=== PATIENT | male | born 1945 | race Caucasian/White ===

== ENCOUNTER 2017-12-02 11:15 | Observation (INO) | payer OTHER, SELFPAY ==
--- NOTE | 2017-12-02 | DI.NM.S_ITS ---
PROCEDURE: NM SOFIA PERF SPECT SINGLE STUDY Exercise myocardial perfusion SPECT with gated imaging and ejection fraction RADIOPHARMACEUTICAL: 26.2 mCi Tc-99m sestamibi IV at peak exercise. INDICATIONS: chest pain TECHNIQUE: Radiopharmaceutical was injected at peak stress test. SPECT images were obtained, with perfusion images in short axis, horizontal long axis, and vertical long axis views. Gated images were reviewed using Dopios software. COMPARISON: None. CARDIAC STRESS: A standard Wilmer treadmill exercise tolerance test was performed by the patient under the supervision of an attending staff. The patient exercised for 6 minutes and 39 seconds reaching 7.0 METs; functional aerobic impairment (BROWN) is 0 %. Hemodynamic data: There is normal blood pressure and heart response to exercise. Patient achieved 96% of maximum predicted heart rate. Symptoms: Patient denied anginal chest pain during exercise. EKG: No diagnostic changes of ischemia; no ectopy. FINDINGS: Raw data: There is good labeling of myocardium by radiotracer. No significant motion artifacts. Aaqg-ce-jltln ratio is 0.25 (normal is less than 0.38 for sestamibi tracer, and less than 0.50 for thallium tracer). Left ventricular function: Gated images demonstrate normal left ventricle wall thickening. No segmental wall motion abnormalities. Left ventricle end diastolic volume is 105 mL. Left ventricle stress ejection fraction is 70%; normal values are above 45%. Myocardial perfusion: There is a mild apical lateral defect during stress images that improves with prone imaging suggesting attentuation artifact than true ischemia or infarction. IMPRESSION: Probably normal treadmill stress only nuclear stress test. 1) Probably normal perfusion images. There is a mild apical lateral defect during stress images that improves with prone imaging suggesting attentuation artifact than true ischemia or infarction. 2) Normal left ventricular size, wall motion, and systolic function (post stress EF 70%). 3) No ECG evidence of ischemia. 4) No angina during the study. 5) Average exercise tolerance (7.0 METs, BROWN 0%). Target heart rate met. Appropriate BP response to exercise. 6) No prior nuclear stress test available for comparison. Dictated by: Colby Gonzales MD on 12/03/2017 at 18:46 Approved by: Colby Gonzales MD on 12/03/2017 at 18:51
[2017-12-02 11:18] VITALS: BP 145/95; PULSE 94; RESP 12; TEMP 37; O2SAT 96; BMI 25.0
--- NOTE | 2017-12-02 11:39 | DI.RAD.S_ITS ---
PROCEDURE: XR CHEST 1V INDICATIONS: chest pain TECHNIQUE: One view of the chest was acquired. COMPARISON: None. FINDINGS: Surgical changes and devices: None. Lungs and pleura: No pleural effusions or pneumothorax. Lungs are clear. Mediastinum: Mediastinal contours appear normal. Heart size is normal. Bones and chest wall: No suspicious bony lesions. Overlying soft tissues appear unremarkable. IMPRESSION: No acute cardiopulmonary findings. Dictated by: Petrona Brown M.D. on 12/02/2017 at 11:59 Approved by: Petrona Brown M.D. on 12/02/2017 at 11:59
[2017-12-02 12:06] LABS: Add Manual Diff / Slide Review NO; Basophils Percent Auto 0.7 % (0-2); Eosinophils Percent Auto 0.8 % (2-4); Hematocrit 41.1 % (41-53); Hemoglobin 13.9 g/dL (13.5-17.5); Lymphocytes Percent Auto 29.3 % (25-40); Mean Corpuscular HGB Conc 33.9 % (30-36); Mean Corpuscular Hemoglobin 31.8 PG (26-34); Mean Corpuscular Volume 93.8 fL (80-100); Monocytes Percent Auto 7.6 % (3-14); Neutrophils Absolute Auto 2800 /uL (3000-5900); Neutrophils Percent Auto 61.6 % (50-75); Platelet Count 225 X10^3/uL (150-400); Red Blood Cell Count 4.38 X10^6/uL (4.5-5.9); Red Cell Distribution Width 12.9 % (11.6-14.8); White Blood Cell Count 4.6 X10^3/uL (4.5-11.0)
[2017-12-02 12:21] LABS: Alanine Aminotransferase 34 IU/L (21-72); Albumin 4.6 g/dL (3.5-5.0); Albumin Globulin Ratio 1.7 (1.0-2.8); Alkaline Phosphatase 80 U/L (38-126); Aspartate Aminotransferase 24 IU/L (17-59); BUN Creatinine Ratio 22.5 (6-22); Bilirubin Total 0.8 mg/dL (0.2-1.3); Blood Urea Nitrogen 18 mg/dL (9-20); Calcium 9.7 mg/dL (8.4-10.2); Carbon Dioxide 28 mmol/L (22-32); Chloride 103 mmol/L (98-107); Creatine Kinase 48 U/L (55-170); Estimated Glomerular Filt Rate > 60.0 mL/min (>60); Globulin 2.7 g/dL (1.7-4.1); Glucose 98 mg/dL (80-110); HEMOLYSIS < 15 (0-50); Lipase 120 U/L (23-300); Sodium 142 mmol/L (137-145); Total Protein 7.3 g/dL (6.3-8.2)
[2017-12-02 12:30] VITALS: BP 133/75; PULSE 67; RESP 13; O2SAT 97
[2017-12-02 12:38] LABS: Troponin I < 0.012 ng/mL (0.01-0.034)
--- NOTE | 2017-12-02 12:42 | ED.CHESTPAIN ---
HPI - Chest Pain General Chief Complaint: Chest Pain Stated Complaint: tight chest, Time Seen by Provider: 12/02/17 12:34 Source: patient Mode of arrival: ambulatory Limitations: no limitations History of Present Illness HPI narrative: This is a 72-year-old male who comes in with complaint of chest pressure that started yesterday while he was on the treadmill at the gym. He was about 7 or 8 min into his regular routine when he started having pressure that lasted about 10 min. He stopped sat down and it resolved. Patient states it felt like a pressure in his anterior chest that radiated a little bit to his arms. He denies any shortness of breath. No diaphoresis, no nausea or vomiting no syncope or lightheadedness. He has not had any swelling of lower extremities. Denies any issues with bowel movements or urination. He states he had another episode last night while he was getting ready for bed. That lasted about 10 or 15 min and then resolved on its own. He denies any symptoms since then. He takes an aspirin 81 mg daily. He denies any other history such as hypertension, dyslipidemia or diabetes. He has never had a stress test or heart catheterization. Has a history of prostate cancer had his prostate removed and has a PSA checked yearly. His dad had a CABG around the age of 65. He quit smoking many years ago, quit drinking alcohol about a month ago and denies any illicit substances. Related Data Home Medications Medication Instructions Recorded Confirmed aspirin 81 mg PO QPM #0 02/11/11 12/02/17 flaxseed oil 1 cap PO QPM #0 02/11/11 12/02/17 multivitamin 1 tab PO QPM #0 02/11/11 12/02/17 ascorbic acid (vitamin C) 1 tab PO QPM #0 04/23/11 12/02/17 biotin 1 tab PO QPM #0 02/27/16 12/02/17 acyclovir 400 mg PO BID PRN 12/02/17 12/02/17 Allergies Allergy/AdvReac Type Severity Reaction Status Date / Time No Known Drug Allergies Allergy Verified 12/02/17 12:09 Review of Systems Review of Systems All systems reviewed & are unremarkable except as noted in HPI and below Cardiovascular Reports chest pain, Reports chest pain with activity, Denies diaphoresis, Denies syncope, Denies rapid heart rate, Denies leg edema, Denies lightheadedness, Reports radiating jaw, neck or arm pain, Denies palpitations and Denies dyspnea Respiratory Denies chest congestion, Denies cough and Denies dyspnea Gastrointestinal Gastrointestinal: Denies abdominal pain, Denies change in bowel habits, Denies diarrhea, Denies nausea and Denies vomiting Genitourinary Denies difficulty urinating Musculoskeletal Denies back pain Integumentary/Breasts Denies rash Neurologic Denies syncope Endocrine Denies palpitations [facility] Medical History Prostate cancer (Chronic) Surgical History History of tonsillectomy Status post LASIK surgery Status post colonoscopy Status post radical cystoprostatectomy Family History: Reviewed 12/02/17 by Hayley Moncada MD Social History household members: spouse Smoking Status: Never smoker Exam Narrative Exam Narrative: GENERAL: Alert and oriented x three, tall, well-nourished well-appearing male in no acute distress. HEENT: Head normocephalic, atraumatic, EOMI, pupils reactive, face symmetric, moist mucous membranes NECK: Supple, full range of motion CARDIOVASCULAR: Regular rate and rhythm without murmurs, rubs or gallops. No rashes. No skin changes to the anterior chest. No pain with palpation. RESPIRATORY: Breath sounds equal bilaterally, no wheezes rales or rhonchi. ABDOMEN: Soft, nontender. Normoactive bowel sounds all 4 quadrants. No guarding or rebound, rigidity, no mass EXTREMITIES: Normal range of motion, no clubbing or edema. Neurovascularly intact NEUROLOGICAL: Cranial nerves II through XII grossly intact. Moving all extremities SKIN: Warm, dry, no petechiae, no rashes or lesions. Initial Vital Signs Initial Vital Signs: Vital Signs Temperature 98.6 F 12/02/17 11:18 Pulse Rate 94 H 12/02/17 11:18 Respiratory Rate 12 12/02/17 11:18 Blood Pressure 145/95 H 12/02/17 11:18 Pulse Oximetry 96 12/02/17 11:18 Scores HEART Score Heart Score history: Moderately Suspicious Heart Score EKG: Non-Specific repolarization disturbance Heart Score Age: > or = 65 years old Heart Score risk factors: No known risk factors Heart Score troponin: < or = to normal limit Heart Score Total: 4 Course Orders Ordered: ED Orders 12/02/17 11:28 EKG-12 Lead Stat EKG-12 Lead Stat 12/02/17 11:39 XR chest 1V Stat 12/02/17 11:55 Complete Blood Count AUTO DIFF Stat Comprehensive Metabolic Panel Stat Lipase Stat Troponin & CK Cardiac Panel Stat 12/02/17 14:00 MRSA PCR Urgent 12/02/17 17:57 Education, smoking cessation ONGOING Acetaminophen (Tylenol) 650 mg PO Q6HR PRN PRN Reason: As Needed for Fever/Mild Pain Aspirin (Aspirin Ec) 325 mg PO DAILY FLAVIO Enoxaparin Sodium (Lovenox) 40 mg SUBCUT DAILY FLAVIO Morphine Sulfate (Morphine) 2 mg IV Q4HR PRN PRN Reason: Pain, Moderate (4-6) Nitroglycerin (Nitrostat) 0.4 mg SL [id number] PRN PRN Reason: Chest Pain Ondansetron HCl (Zofran) 4 mg IV Q8HR PRN PRN Reason: Nausea And Vomiting Discontinued Medications Aspirin (Aspirin Chew) 324 mg PO NOW ONE Stop: 12/02/17 11:40 Last Admin: 12/02/17 13:34 Dose: 324 mg Vital Signs - 8 hr 12/02/17 12:30 12/02/17 13:00 12/02/17 16:51 Temperature 97.5 F L Pulse Rate 67 65 65 Respiratory Rate 13 17 20 Blood Pressure 149/80 H Blood Pressure [Right Arm] 133/75 139/74 Pulse Oximetry 97 98 99 MDM - Chest Pain Lab Data Attestation: I reviewed the patient's lab results. Result diagrams: 12/02/17 11:55 12/02/17 11:55 Lab Results 12/02/17 12/02/17 Range/Units 11:55 11:55 WBC 4.6 (4.5-11.0) X10^3/uL RBC 4.38 L (4.5-5.9) X10^6/uL Hgb 13.9 (13.5-17.5) g/dL Hct 41.1 (41-53) % MCV 93.8 (80-100) fL MCH 31.8 (26-34) PG MCHC 33.9 (30-36) % RDW 12.9 (11.6-14.8) % Plt Count 225 (150-400) X10^3/uL Neut % (Auto) 61.6 (50-75) % Lymph % (Auto) 29.3 (25-40) % [place] % (Auto) 7.6 (3-14) % Eos % (Auto) 0.8 L (2-4) % Baso % (Auto) 0.7 (0-2) % Neut # (Auto) 2800 L (8953-1718) /uL Sodium 142 (137-145) mmol/L Potassium 4.0 (3.4-5.1) mmol/L Chloride 103 (98-107) mmol/L Carbon Dioxide 28 (22-32) mmol/L BUN 18 (9-20) mg/dL Creatinine 0.80 (0.66-1.25) mg/dL Estimated GFR > 60.0 (>60) mL/min BUN/Creatinine Ratio 22.5 H (6-22) Glucose 98 (80-110) mg/dL Calcium 9.7 (8.4-10.2) mg/dL Total Bilirubin 0.8 (0.2-1.3) mg/dL AST 24 (17-59) IU/L ALT 34 (21-72) IU/L Alkaline Phosphatase 80 (38-126) U/L Total Creatine Kinase 48 L (55-170) U/L CK-MB (CK-2) TNP CK-MB (CK-2) Rel Index TNP Troponin I < 0.012 (0.01-0.034) ng/mL Total Protein 7.3 (6.3-8.2) g/dL Albumin 4.6 (3.5-5.0) g/dL Globulin 2.7 (1.7-4.1) g/dL Albumin/Globulin Ratio 1.7 (1.0-2.8) Lipase 120 (23-300) U/L Imaging Data Chest x-ray: Attestation: I personally reviewed and interpreted this imaging study as follows: Radiologist's impression: [address] [address] XRay Report Signed Patient: Alexis Mckeon LMR#: [id number] : 5Acct:[id number] Age/Sex: 72 / MDate of Service: 12/02/17 Loc: ED Accession Number: [id number] Procedure: XR chest 1V Ordering Provider: Nancy Hoffman D.O. PROCEDURE: XR CHEST 1V INDICATIONS: chest pain TECHNIQUE: One view of the chest was acquired. COMPARISON: None. FINDINGS: Surgical changes and devices: None. Lungs and pleura: No pleural effusions or pneumothorax. Lungs are clear. Mediastinum: Mediastinal contours appear normal. Heart size is normal. Bones and chest wall: No suspicious bony lesions. Overlying soft tissues appear unremarkable. IMPRESSION: No acute cardiopulmonary findings. Dictated by: Petrona Brown M.D. on 12/02/2017 at 11:59 Approved by: Petrona Brown M.D. on 12/02/2017 at 11:59 ECG Data Attestation: I personally reviewed and interpreted this ECG as follows: Prior ECG tracings: not available for review Interpretation: Sinus rate of 76, P are 186, cares 0109 and QTC of 395. Patient has is left axis deviation Q-wave in V1 V2. Possible ST depression V4 through V6. MDM Narrative Medical decision making narrative: Patient has history somewhat suspicious. His heart score is 4. He does not have a lot of risk factors some but his EKG has some nonspecific abnormalities. Spoke with Dr. Moncada the hospitalist and plan for chest pain observation with telemetry. Patient has been chest pain-free since last night. Discharge Plan Departure Patient Disposition: Admitted as Observation Clinical Impression: Chest pain Discharge Date/Time: 12/02/17 13:51 Interventions: ED Discharge Assessment Last Done: 12/02/17 13:45 Admit Date/Time: 12/02/17 13:14 Admit Provider: Hayley Moncada
--- NOTE | 2017-12-02 12:59 | ED_ITS ---
HPI - Chest Pain General Chief Complaint: Chest Pain Stated Complaint: tight chest, Time Seen by Provider: 12/02/17 12:34 Source: patient Mode of arrival: ambulatory Limitations: no limitations History of Present Illness HPI narrative: This is a 72-year-old male who comes in with complaint of chest pressure that started yesterday while he was on the treadmill at the gym. He was about 7 or 8 min into his regular routine when he started having pressure that lasted about 10 min. He stopped sat down and it resolved. Patient states it felt like a pressure in his anterior chest that radiated a little bit to his arms. He denies any shortness of breath. No diaphoresis, no nausea or vomiting no syncope or lightheadedness. He has not had any swelling of lower extremities. Denies any issues with bowel movements or urination. He states he had another episode last night while he was getting ready for bed. That lasted about 10 or 15 min and then resolved on its own. He denies any symptoms since then. He takes an aspirin 81 mg daily. He denies any other history such as hypertension, dyslipidemia or diabetes. He has never had a stress test or heart catheterization. Has a history of prostate cancer had his prostate removed and has a PSA checked yearly. His dad had a CABG around the age of 65. He quit smoking many years ago, quit drinking alcohol about a month ago and denies any illicit substances. Related Data Home Medications Medication Instructions Recorded Confirmed aspirin 81 mg PO QPM #0 02/11/11 12/02/17 flaxseed oil 1 cap PO QPM #0 02/11/11 12/02/17 multivitamin 1 tab PO QPM #0 02/11/11 12/02/17 ascorbic acid (vitamin C) 1 tab PO QPM #0 04/23/11 12/02/17 biotin 1 tab PO QPM #0 02/27/16 12/02/17 acyclovir 400 mg PO BID PRN 12/02/17 12/02/17 Allergies Allergy/AdvReac Type Severity Reaction Status Date / Time No Known Drug Allergies Allergy Verified 12/02/17 12:09 Review of Systems Review of Systems All systems reviewed & are unremarkable except as noted in HPI and below Cardiovascular Reports chest pain, Reports chest pain with activity, Denies diaphoresis, Denies syncope, Denies rapid heart rate, Denies leg edema, Denies lightheadedness, Reports radiating jaw, neck or arm pain, Denies palpitations and Denies dyspnea Respiratory Denies chest congestion, Denies cough and Denies dyspnea Gastrointestinal Gastrointestinal: Denies abdominal pain, Denies change in bowel habits, Denies diarrhea, Denies nausea and Denies vomiting Genitourinary Denies difficulty urinating Musculoskeletal Denies back pain Integumentary/Breasts Denies rash Neurologic Denies syncope Endocrine Denies palpitations [facility] Medical History Prostate cancer (Chronic) Surgical History History of tonsillectomy Status post LASIK surgery Status post colonoscopy Status post radical cystoprostatectomy Family History: Reviewed 12/02/17 by Hayley Moncada MD Social History household members: spouse Smoking Status: Never smoker Exam Narrative Exam Narrative: GENERAL: Alert and oriented x three, tall, well-nourished well- appearing male in no acute distress. HEENT: Head normocephalic, atraumatic, EOMI, pupils reactive, face symmetric, moist mucous membranes NECK: Supple, full range of motion CARDIOVASCULAR: Regular rate and rhythm without murmurs, rubs or gallops. No rashes. No skin changes to the anterior chest. No pain with palpation. RESPIRATORY: Breath sounds equal bilaterally, no wheezes rales or rhonchi. ABDOMEN: Soft, nontender. Normoactive bowel sounds all 4 quadrants. No guarding or rebound, rigidity, no mass EXTREMITIES: Normal range of motion, no clubbing or edema. Neurovascularly intact NEUROLOGICAL: Cranial nerves II through XII grossly intact. Moving all extremities SKIN: Warm, dry, no petechiae, no rashes or lesions. Initial Vital Signs Initial Vital Signs: Vital Signs Temperature 98.6 F 12/02/17 11:18 Pulse Rate 94 H 12/02/17 11:18 Respiratory Rate 12 12/02/17 11:18 Blood Pressure 145/95 H 12/02/17 11:18 Pulse Oximetry 96 12/02/17 11:18 Scores HEART Score Heart Score history: Moderately Suspicious Heart Score EKG: Non-Specific repolarization disturbance Heart Score Age: > or = 65 years old Heart Score risk factors: No known risk factors Heart Score troponin: < or = to normal limit Heart Score Total: 4 Course Orders Ordered: ED Orders 12/02/17 11:28 EKG-12 Lead Stat EKG-12 Lead Stat 12/02/17 11:39 XR chest 1V Stat 12/02/17 11:55 Complete Blood Count AUTO DIFF Stat Comprehensive Metabolic Panel Stat Lipase Stat Troponin & CK Cardiac Panel Stat 12/02/17 14:00 MRSA PCR Urgent 12/02/17 17:57 Education, smoking cessation ONGOING Acetaminophen (Tylenol) 650 mg PO Q6HR PRN PRN Reason: As Needed for Fever/Mild Pain Aspirin (Aspirin Ec) 325 mg PO DAILY FLAVIO Enoxaparin Sodium (Lovenox) 40 mg SUBCUT DAILY FLAVIO Morphine Sulfate (Morphine) 2 mg IV Q4HR PRN PRN Reason: Pain, Moderate (4-6) Nitroglycerin (Nitrostat) 0.4 mg SL [id number] PRN PRN Reason: Chest Pain Ondansetron HCl (Zofran) 4 mg IV Q8HR PRN PRN Reason: Nausea And Vomiting Discontinued Medications Aspirin (Aspirin Chew) 324 mg PO NOW ONE Stop: 12/02/17 11:40 Last Admin: 12/02/17 13:34 Dose: 324 mg Vital Signs - 8 hr 12/02/17 12:30 12/02/17 13:00 12/02/17 16:51 Temperature 97.5 F L Pulse Rate 67 65 65 Respiratory Rate 13 17 20 Blood Pressure 149/80 H Blood Pressure [Right Arm] 133/75 139/74 Pulse Oximetry 97 98 99 MDM - Chest Pain Lab Data Attestation: I reviewed the patient's lab results. Result diagrams: 12/02/17 11:55 12/02/17 11:55 Lab Results 12/02/17 12/02/17 Range/Units 11:55 11:55 WBC 4.6 (4.5-11.0) X10^3/uL RBC 4.38 L (4.5-5.9) X10^6/uL Hgb 13.9 (13.5-17.5) g/dL Hct 41.1 (41-53) % MCV 93.8 (80-100) fL MCH 31.8 (26-34) PG MCHC 33.9 (30-36) % RDW 12.9 (11.6-14.8) % Plt Count 225 (150-400) X10^3/uL Neut % (Auto) 61.6 (50-75) % Lymph % (Auto) 29.3 (25-40) % [place] % (Auto) 7.6 (3-14) % Eos % (Auto) 0.8 L (2-4) % Baso % (Auto) 0.7 (0-2) % Neut # (Auto) 2800 L (4343-4395) /uL Sodium 142 (137-145) mmol/L Potassium 4.0 (3.4-5.1) mmol/L Chloride 103 (98-107) mmol/L Carbon Dioxide 28 (22-32) mmol/L BUN 18 (9-20) mg/dL Creatinine 0.80 (0.66-1.25) mg/dL Estimated GFR > 60.0 (>60) mL/min BUN/Creatinine Ratio 22.5 H (6-22) Glucose 98 (80-110) mg/dL Calcium 9.7 (8.4-10.2) mg/dL Total Bilirubin 0.8 (0.2-1.3) mg/dL AST 24 (17-59) IU/L ALT 34 (21-72) IU/L Alkaline Phosphatase 80 (38-126) U/L Total Creatine Kinase 48 L (55-170) U/L CK-MB (CK-2) TNP CK-MB (CK-2) Rel Index TNP Troponin I < 0.012 (0.01-0.034) ng/mL Total Protein 7.3 (6.3-8.2) g/dL Albumin 4.6 (3.5-5.0) g/dL Globulin 2.7 (1.7-4.1) g/dL Albumin/Globulin Ratio 1.7 (1.0-2.8) Lipase 120 (23-300) U/L Imaging Data Chest x-ray: Attestation: I personally reviewed and interpreted this imaging study as follows: Radiologist's impression: [address] [address] XRay Report Signed Patient: Alexis Mckeon LMR#: [id number] : 5Acct:[id number] Age/Sex: 72 / MDate of Service: 12/02/17 Loc: ED Accession Number: [id number] Procedure: XR chest 1V Ordering Provider: Nancy Hoffamn D.O. PROCEDURE: XR CHEST 1V INDICATIONS: chest pain TECHNIQUE: One view of the chest was acquired. COMPARISON: None. FINDINGS: Surgical changes and devices: None. Lungs and pleura: No pleural effusions or pneumothorax. Lungs are clear. Mediastinum: Mediastinal contours appear normal. Heart size is normal. Bones and chest wall: No suspicious bony lesions. Overlying soft tissues appear unremarkable. IMPRESSION: No acute cardiopulmonary findings. Dictated by: Petrona Brown M.D. on 12/02/2017 at 11:59 Approved by: Petrona Brown M.D. on 12/02/2017 at 11:59 ECG Data Attestation: I personally reviewed and interpreted this ECG as follows: Prior ECG tracings: not available for review Interpretation: Sinus rate of 76, P are 186, cares 0109 and QTC of 395. Patient has is left axis deviation Q-wave in V1 V2. Possible ST depression V4 through V6. MDM Narrative Medical decision making narrative: Patient has history somewhat suspicious. His heart score is 4. He does not have a lot of risk factors some but his EKG has some nonspecific abnormalities. Spoke with Dr. Moncada the hospitalist and plan for chest pain observation with telemetry. Patient has been chest pain- free since last night. Discharge Plan Departure Patient Disposition: Admitted as Observation Clinical Impression: Chest pain Discharge Date/Time: 12/02/17 13:51 Interventions: ED Discharge Assessment Last Done: 12/02/17 13:45 Admit Date/Time: 12/02/17 13:14 Admit Provider: Hayley Moncada
[2017-12-02 13:00] VITALS: BP 139/74; PULSE 65; RESP 17; O2SAT 98
[2017-12-02] MEDS: ASPIRIN 81 MG TAB 324 MG PO (13:34)
--- NOTE | 2017-12-02 13:47 | PC.NURSE ---
Patient was at gym doing normal activity on treadmill, when had squeezing chest pain in center of chest. Denied dizziness, nausea or radiation. Had a similar episode last night at rest lasting 15-20min. Patient recalls a similar episode about one month ago. Pain free upon arrival to ED. Sent by PCP.
[2017-12-02 13:59] VITALS: BMI 25.0
--- NOTE | 2017-12-02 14:33 | PC.NURSE ---
pt admitted with c/o chest pain toward end of his work-out at gym- this was self resolving and he reports same situation last pm at bedtime- tele shows nsr, voiding as tony, no skin issues and not requiring any o2 - saline locked admission completed
[2017-12-02 16:51] VITALS: BP 149/80; PULSE 65; RESP 20; TEMP 36.4; O2SAT 99
--- NOTE | 2017-12-02 18:12 | P.HP_ITS ---
History of Present Illness Date Patient Seen: 12/02/17 Chief complaint: tight chest, Narrative: Patient is a 72 y/o male with no significant past medical history who developed substernal chest pain starting one month ago. The patient describes substernal chest pain 6-7/10 radiating to shoulders lasting about 10 mins. He had no associated shortness of breath, diaphoresis, or nausea. The symptoms quickly resolved. Patient reports last night he was awaken from sleep with chest pressure the pain was about 6/10 without associated symptoms and dissapated on its own. He was on the treadmill today and 7-8 minutes into his walk he developed Chest pain again, the pain lasted about 10 mins, radiated to both arms, but was not associated with diaphoresis, nausea, palpitations, lightheadedness, syncope, or shortness of breath. Activity seemed to exacerbate the pain and it sponatnaeously resolved prior to evaluation in the hospital. He has a family history of CAD but no history of hypertension, diabetes, hyperlipidemia, and is a remote smoker. Patient was evaluated in the ED where his chest xray was negative. His EKG revealed an incomplete bundle branch block with [address] depression in leads V4-V6. His initial set of cardiac enzymes were negative. The patient is pain free and is brought into the hospital for evaluation of unstable angina. Patient History Medical History Prostate cancer (Chronic) Surgical History History of tonsillectomy Status post LASIK surgery Status post colonoscopy Status post radical cystoprostatectomy Family & Social History Family History: Reviewed 12/02/17 by Hayley Moncada MD Social History: household members spouse Prior Living Arrangements House Safety & Behavioral: Feels Safe in Current No Environment Tobacco & Substance use: Smoking Status Never smoker alcohol intake frequency other Substance Use Type does not use Meds Home Medications Medication Instructions Recorded Confirmed Type aspirin 81 mg PO QPM #0 02/11/11 12/02/17 History flaxseed oil 1 cap PO QPM #0 02/11/11 12/02/17 History multivitamin 1 tab PO QPM #0 02/11/11 12/02/17 History ascorbic acid (vitamin C) 1 tab PO QPM #0 04/23/11 12/02/17 History biotin 1 tab PO QPM #0 02/27/16 12/02/17 History acyclovir 400 mg PO BID PRN 12/02/17 12/02/17 History Allergies Allergy/AdvReac Type Severity Reaction Status Date / Time No Known Drug Allergies Allergy Verified 12/02/17 12:09 Review of Systems Review of Systems All systems reviewed & are unremarkable except as noted in HPI and below Exam Vital Signs (past 8 hours): - 12/02/17 11:18 12/02/17 12:30 12/02/17 13:00 Temperature 98.6 F Pulse Rate 94 H 67 65 Respiratory Rate 12 13 17 Blood Pressure 145/95 H Blood Pressure [Right Arm] 133/75 139/74 Pulse Oximetry 96 97 98 12/02/17 16:51 Temperature 97.5 F L Pulse Rate 65 Respiratory Rate 20 Blood Pressure 149/80 H Blood Pressure [Right Arm] Pulse Oximetry 99 Oxygen Delivery Method Room Air Narrative Exam Narrative: Pleasant male in No acute distress HEENT: NC/AT, EOMI, oropharynx clear, neck supple LUngs: clear to auscultation CV: RRR nl Sl S22/6 EDU ABd: soft/ non tender/ nondistended Ext: no edema Neuro: non focal Skin no lesions Psychiatry: no hallucinations, tics, unusual behaviors Objective Labs Result Diagrams: 12/02/17 11:55 12/02/17 11:55 Labs: Laboratory Results - last 24 hr 12/02/17 12/02/17 11:55 11:55 WBC 4.6 RBC 4.38 L Hgb 13.9 Hct 41.1 MCV 93.8 MCH 31.8 MCHC 33.9 RDW 12.9 Plt Count 225 Neut % (Auto) 61.6 Lymph % (Auto) 29.3 [place] % (Auto) 7.6 Eos % (Auto) 0.8 L Baso % (Auto) 0.7 Neut # (Auto) 2800 L Sodium 142 Potassium 4.0 Chloride 103 Carbon Dioxide 28 BUN 18 Creatinine 0.80 Estimated GFR > 60.0 BUN/Creatinine Ratio 22.5 H Glucose 98 Calcium 9.7 Total Bilirubin 0.8 AST 24 ALT 34 Alkaline Phosphatase 80 Total Creatine Kinase 48 L CK-MB (CK-2) TNP CK-MB (CK-2) Rel Index TNP Troponin I < 0.012 Total Protein 7.3 Albumin 4.6 Globulin 2.7 Albumin/Globulin Ratio 1.7 Lipase 120 Assessment & Plan (1) Chest pain: Problem details: Patient presents with chest pain suspicious for unstable angina. Will continue aspirin daily, check fasting lipid profile, arrange for Stress test in am, Check cardiac echo, start DVT prophylaxis, start nitro and morphine for pain. Qualifiers: Chest pain type: Ischemic chest pain type: Current visit: Yes Status: Acute Plan: Assessment/Plan Narrative: Further recommendations pending the results of above
--- NOTE | 2017-12-02 20:23 | PC.NURSE ---
2020- Patient transferred to room 230. Report called to Malena WHALEY. Patient stable at the time of transfer.
[2017-12-02 20:55] LABS: Creatine Kinase 44 U/L (55-170)
[2017-12-02 21:03] VITALS: BP 124/67; PULSE 62; RESP 18; TEMP 36.8; O2SAT 94
[2017-12-02 21:07] LABS: Cholesterol 174 mg/dL (140-199); HDL Cholesterol 38 mg/dL (40-60); LDL Cholesterol Calculated 114 mg/dL (<100); Triglycerides 111 mg/dL (35-150)
[2017-12-02 21:11] LABS: Troponin I < 0.012 ng/mL (0.01-0.034)
[2017-12-03] VITALS (8 sets, daily range): BP systolic 106–129; BP diastolic 59–73; PULSE 57–70; RESP 16–18; TEMP 36.4–36.8; O2SAT 94–98
[2017-12-03] MEDS: ACETAMINOPHEN 325 MG TABLET 650 MG PO (08:17)
--- NOTE | 2017-12-03 12:22 | P.PCN_ITS ---
Cardiac Stress Test Report Referral & Results Date Patient Seen: 12/03/17 Time Patient Seen: 12:21 Requesting provider: Hayley Moncada Indication: Chest pain while exercising Rest ECG: Unremarkable Procedure Note: Today following both written and verbal informed consent the patient was exercised according to a standard Wilmer protocol patient went for a total of 6 min 39 sec achieving a maximum heart rate of 141 maximum systolic blood pressure of 170. This is approximately 7.0 METS. Exercise was terminated at this point because of targets having been met. Patient was also given Cardiolite through a previously started Hep-Lock IV by the nuclear fuels reclamation engineer approximately 1 minute prior to the cessation of exercise. There are no ST-T segment changes Normal heart rate and blood pressure response to exercise Functional aerobic impairment rated 0 on the active scale, patient could certainly have continued longer to absolute maximum exercise time but was stopped early because targets were met Patient experienced no abnormal symptoms Impression: No evidence of ischemia based on usual ECG criteria Better than average exercise capacity as above Perfusion imaging will be reported separately Please note: Actual ECG tracings can be found in the PACS system.
--- NOTE | 2017-12-03 13:34 | DI.ECHO.S_ITS ---
Echocardiogram Report + + :Name: YOVANNY LYON Study Date: 12/03/2017 Height: 74 in : :[facility] Exam Location: [facility] Weight: 195 lb : : Gender: Male BSA: 2.1 m2 : :: 1945 Age: 72 yrs BP: 129/73 mmHg: :Reason For Study: Murmur : : Performed By: Claire Page : :Referring: JAIRO HERNANDEZ : + + Interpretation Summary The left ventricle is normal in size, wall thickness, and systolic function without any focal wall motion abnormalities. The ejection fraction is estimated to be 60-65%. Diastolic parameters suggest probable normal left ventricular diastolic function and normal filling pressures. The right ventricle is normal in size and function. Pulmonary artery pressures cannot be estimated because of the lack of a measurable TR jet velocity. Both atria are normal in size. There is no significant valvular heart disease. The aortic root is moderately dilated. The ascending aorta is moderateseverely enlarged. Procedure: A two-dimensional transthoracic echocardiogram with color flow and Doppler was performed. The study quality was technically adequate. There is no prior echocardiogram noted for this patient. The patient was in normal sinus rhythm during the exam. Left Ventricle: The left ventricle is normal in size, wall thickness, and systolic function without any focal wall motion abnormalities. The ejection fraction is estimated to be 60-65%. Diastolic parameters suggest probable normal left ventricular diastolic function and normal filling pressures. Right Ventricle: The right ventricle is normal in size and function. Atria: Both atria are normal in size. There is no Doppler evidence for an interatrial shunt. Mitral Valve: The mitral valve is normal in structure and function. There is trace mitral regurgitation. Aortic Valve: The aortic valve is trileaflet. The aortic valve opens well. No aortic regurgitation is present. Tricuspid Valve: The tricuspid valve is normal in structure and function. There is a trace or physiologic amount of tricuspid regurgitation. Pulmonary artery pressures cannot be estimated because of the lack of a measurable TR jet velocity. Pulmonic Valve: The pulmonic valve is not well visualized. There is trace pulmonic regurgitation. There is no significant valvular heart disease. Great Vessels: The aortic root is moderately dilated. The ascending aorta is moderate-severely enlarged. The pulmonary artery is not well visualized, but is probably normal size. The IVC is of normal diameter and collapses greater than 50% with a sniff. This suggests a low right atrial pressure of 3 mm Hg. Pericardium/ Pleura There is no pericardial effusion. There is no pleural effusion. MMode/2D Measurements & Calculations LVIDd: 4.5 cm LVOT diam: 2.7 cm LVIDs: 3.3 cm Ao root diam: 4.6 cm FS: 27.9 % asc Aorta Diam: 4.9 cm EPSS: 0.65 cm IVSd: 0.64 cm LVPWd: 0.81 cm LV sahu. diameter/BSA (cm/m^2): 2.1 LV sys. diameter/BSA (cm/m^2): 1.5 LA A2 area: 22.6 cm2 RA long axis: 5.2 cm LA A4 area: 16.4 cm2 RA area: 14.8 cm2 LA length (vol): 4.4 cm RA vol: 35.7 ml LA vol: 71.9 ml RA : 16.6 ml/m2 LA vol index: 33.4 ml/m2 RVD1 (basal): 4.6 cm TAPSE: 2.6 cm Doppler Measurements & Calculations Ao V2 max: 119.6 cm/sec LVOT Max Juarez: 117.2 cm/sec Ao V2 mean: 85.8 cm/sec LV V1 max P.5 mmHg Ao max P.7 mmHg LV V1 VTI: 21.9 cm Ao mean P.2 mmHg GALILEO(I,D): 5.3 cm2 Ao V2 VTI: 23.8 cm GALILEO(V,D): 5.6 cm2 sev ratio: 0.92 GALILEO indexed to BSA (cm^2/m^2): 2.5 MV E max juarez: 60.8 cm/sec PA V2 max: 105.8 cm/sec MV A max juarez: 65.1 cm/sec PA V2 mean: 62.7 cm/sec MV E/A: 0.94 PA mean P.9 mmHg Med Peak E' Juarez: 6.0 cm/sec PA Accel Time: 0.12 sec E/E' med: 10.2 Lat Peak E' Juarez: 7.9 cm/sec E/E' lat: 7.7 E/e' average: 8.9 MV dec time: 0.35 sec MV P1/2t: 100.8 msec MV P1/2t max juarez: 61.0 cm/sec MVA(P1/2t): 2.2 cm2 _ Reading Physician:ALHAJI
--- NOTE | 2017-12-03 15:01 | PC.NURSE ---
1430 Pt resting in bed, No c/o. No CP. Stress test completed. remains on Tele.
[2017-12-03] MEDS: ENOXAPARIN 40 MG/0.4 ML SYRINGE SUBCUT (15:41)
[2017-12-03] MEDS: ASPIRIN EC 325 MG TABLET PO (15:42)
--- NOTE | 2017-12-03 16:01 | CM.IDA ---
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 No History Provided By Patient Prior Living Arrangements House Household Members spouse Type of transporation used prior to Drives own vehicle admit Independent with ADL's Yes Is patient alert and oriented? Yes Comment Indp and active. Pt's vehicle is in the parking lot, he states. Barriers to Discharge No Comment If pt does not require addtl. medical management, he will be okay to DC back home w/no addtl needs from . Discharge Plan Home Transportation Arrangement Spouse. Referrals Initiated None needed Additional Comment No needs according to DC assessment w/pt today. Pt eager to go home if stress test is normal. He is disappointed his provider of 30 years recently retired; Dr Devine. Following closely in case DC needs or concerns arise. Whiteboard Updated in Patient Room with Yes name and ext. # of General Utility Machine Operator
--- NOTE | 2017-12-03 18:44 | PM.DS.1 ---
History of Present Illness Chief complaint: tight chest, Narrative: Patient is a 72 y/o male with no significant past medical history who developed substernal chest pain starting one month ago. The patient describes substernal chest pain 6-7/10 radiating to shoulders lasting about 10 mins. He had no associated shortness of breath, diaphoresis, or nausea. The symptoms quickly resolved. Patient reports last night he was awaken from sleep with chest pressure the pain was about 6/10 without associated symptoms and dissapated on its own. He was on the treadmill today and 7-8 minutes into his walk he developed Chest pain again, the pain lasted about 10 mins, radiated to both arms, but was not associated with diaphoresis, nausea, palpitations, lightheadedness, syncope, or shortness of breath. Activity seemed to exacerbate the pain and it sponatnaeously resolved prior to evaluation in the hospital. He has a family history of CAD but no history of hypertension, diabetes, hyperlipidemia, and is a remote smoker. Patient was evaluated in the ED where his chest xray was negative. His EKG revealed an incomplete bundle branch block with [address] depression in leads V4-V6. His initial set of cardiac enzymes were negative. The patient is pain free and is brought into the hospital for evaluation of unstable angina. Discharge Providers Date of admission: 12/02/17 13:14 Primary care physician: Bharat Devine MD Discharge provider: Hayley Moncada MD Discharge Date: 12/03/17 Summary Discharge Diagnosis: Chest Pain, non cardiac Hospital Course: Patient admitted for chest pain. EKG and enzymes were negative. Thallium study was negative and patient was deemed appropriate for discharge home. He had no further chest pain during his hospital stay. Status at Discharge Functional status at discharge: independent ambulation Overall status at discharge: patient is back to baseline Time Spent with Patient Less than 30 minutes Exam Vital Signs (past 8 hours): - 12/03/17 11:15 12/03/17 15:00 12/03/17 15:30 Temperature 98.3 F 98.3 F Pulse Rate 65 70 Respiratory Rate 18 18 Blood Pressure 123/73 124/69 Pulse Oximetry 98 98 94 Oxygen Delivery Method Room Air Oxygen Flow Rate 0 Narrative Exam Narrative: Pleasant gentleman Lungs: clear to auscultation CV: RRR nl Sl S2 Abd: soft/ non tender Ext: no edema Objective Labs Result Diagrams: 12/02/17 11:55 12/02/17 11:55 Labs: Laboratory Results - last 24 hr 12/02/17 12/02/17 14:00 20:37 Total Creatine Kinase 44 L CK-MB (CK-2) TNP CK-MB (CK-2) Rel Index TNP Troponin I < 0.012 Triglycerides 111 Cholesterol 174 LDL Cholesterol, Calc 114 H HDL Cholesterol 38 L Nasal Screen MRSA (PCR) Negative for mrsa Discharge Plan Discharge Plan Patient Disposition: Home Discharge Med Rec/Prescriptions Prescriptions: Continue multivitamin Tablet 1 tab PO QPM Qty: 0 RF: 0 aspirin 81 mg Tablet,Delayed Release (Dr/Ec) 81 mg PO QPM Qty: 0 RF: 0 flaxseed oil 1,000 mg Capsule 1 cap PO QPM Qty: 0 RF: 0 ascorbic acid (vitamin C) 1,000 mg Tablet 1 tab PO QPM Qty: 0 RF: 0 biotin 300 MCG tablet 1 tab PO QPM Qty: 0 RF: 0 acyclovir 400 MG tablet 400 mg PO BID PRN (Reason: as directed) RF: 0 Follow up/Referrals: Bharat Devine MD [Primary Care Provider] - Visit Report/Discharge Packet Instructions: DI for Chest Pain Visit Report Forms: Stroke Signs & Symptoms Discharge Data Primary Care Provider: Bharat Devine Attending Provider: Hayley Moncada Admit Date/Time: 12/02/17 13:14 Discharges patient from system. Discharge Date/Time: 12/03/17 19:33
== END 2017-12-03 19:33 | disposition home or self-care (01) ==
LOC: ED 13:00 → AC 13:16 → ICU 13:56 → AC 20:46
PROVIDERS: Admitting Provider Internal Medicine; Emergency Provider Emergency Medicine; Family Provider Family Medicine; PCP Family Medicine; Visit Provider Internal Medicine
DX: R07.9 Chest pain, unspecified (principal); Z87.891 Personal history of nicotine dependence
CPT/HCPCS: 36415; 36591; 71045; 78451; 80053; 80061; 82550; 83690; 84484; 85025; 87797; 93005; 93010; 93016; 93017; 93018; 93306; 99282; 99285; G0378; A9502; J1650

== ENCOUNTER → 2019-10-24 16:50 | Outpatient (CLI) | payer MEDICARE, SELFPAY ==
[2018-07-07 13:28] VITALS: BMI 25.0
[2019-10-26 08:11] LABS: Fecal Immunochemical Test Negative (Negative)
== END ==
PROVIDERS: Family Provider Family Medicine; PCP Student in an Organized Health Care Education/Training Program; Referring Provider Student in an Organized Health Care Education/Training Program; Visit Provider Student in an Organized Health Care Education/Training Program
DX: Z12.11 Encounter for screening for malignant neoplasm of colon (principal)
CPT/HCPCS: 82274

== ENCOUNTER → 2020-03-09 12:13 | Outpatient (CLI) | payer MEDICARE, SELFPAY ==
[2018-07-07 13:28] VITALS: BMI 25.0
[2020-03-09] MEDS: COVID-19 VACC #1, MRNA(MOD) 100 MCG/0.5 ML VIAL IM (12:23)
== END ==
PROVIDERS: PCP Student in an Organized Health Care Education/Training Program; Visit Provider Internal Medicine
DX: Z23 Encounter for immunization (principal)
CPT/HCPCS: 0011A; 91301

== ENCOUNTER → 2020-04-06 12:42 | Outpatient (CLI) | payer MEDICARE, SELFPAY ==
[2018-07-07 13:28] VITALS: BMI 25.0
[2020-04-06] MEDS: COVID-19 VACC #2, MRNA(MOD) 100 MCG/0.5 ML VIAL IM (12:44)
== END ==
PROVIDERS: PCP Student in an Organized Health Care Education/Training Program; Visit Provider Internal Medicine
DX: Z23 Encounter for immunization (principal)
CPT/HCPCS: 0012A; 91301

== ENCOUNTER → 2020-10-23 14:44 | Outpatient (CLI) | payer OTHER, SELFPAY ==
[2018-07-07 13:28] VITALS: BMI 25.0
[2020-10-24 08:53] LABS: Fecal Immunochemical Test Negative (Negative)
== END ==
PROVIDERS: PCP Student in an Organized Health Care Education/Training Program; Referring Provider Student in an Organized Health Care Education/Training Program; Visit Provider Student in an Organized Health Care Education/Training Program
DX: Z12.11 Encounter for screening for malignant neoplasm of colon (principal)
CPT/HCPCS: 82274

== ENCOUNTER → 2020-12-14 13:22 | Outpatient (CLI) | payer MEDICARE, SELFPAY ==
[2018-07-07 13:28] VITALS: BMI 25.0
[2020-12-14] MEDS: COVID-19 VACC #3, MRNA(MOD) 50 MCG/0.25 ML VIAL IM (13:25)
== END ==
PROVIDERS: PCP Student in an Organized Health Care Education/Training Program; Visit Provider Internal Medicine
DX: Z23 Encounter for immunization (principal)
CPT/HCPCS: 0013A; 91301

== ENCOUNTER → 2021-01-21 14:38 | Outpatient (CLI) | payer OTHER, SELFPAY ==
[2018-07-07 13:28] VITALS: BMI 25.0
--- NOTE | 2021-01-21 14:39 | DI.ECHO.S_ITS ---
[facility] +---------+ : : [address] : [place] : : : : [id number] : : : : Phone: [phone]+ Echocardiogram Report + + :Name: YOVANNY LYON Study Date: 01/21/2021 Height: 73.5 in: :[facility] ReadingLocation: Weight: 198 lb : : Gender: Male BSA: 2.2 m2 : :: 1945 Age: 75 yrs BP: 136/82 mmHg: :Reason For Study: Thoracic aorta aneurysm without rupture : :Ordering Physician: : :MEMO Performed By: Mariano Dangelo : :Referring: NATY SALAZAR : + + Interpretation Summary The ejection fraction is estimated to be 55-60%. The ascending aorta is moderately enlarged(.4.4 cm,) Was measured to be 4.9 cm in 2018. Suggest CT/MRI for better evaluation. Procedure: A two-dimensional transthoracic echocardiogram with color flow and Doppler was performed. Comparison is made with the echocardiogram of 12/03/2017. Fair image quality. The patient was in normal sinus rhythm during the exam. Left Ventricle: The left ventricle is normal in size and wall thickness. There is borderline proximal septal thickening noted. The ejection fraction is estimated to be 55-60%. There are no obvious focal wall motion abnormalities noted but poor endocardial definition reduces the sensitivity for the detection of such. Right Ventricle: The right ventricle is normal size. The right ventricular systolic function is normal. Atria: The left atrial size is normal. The right atrium is mildly dilated. There is no Doppler evidence for an interatrial shunt. Mitral Valve: The mitral valve is normal. There is mild mitral regurgitation. Aortic Valve: The aortic valve is trileaflet. The aortic valve opens well. There is trace aortic regurgitation. Tricuspid Valve: The tricuspid valve is normal. There is a trace or physiologic amount of tricuspid regurgitation. Pulmonary artery pressures cannot be estimated because of the lack of a measurable TR jet velocity but the IVC suggests a CVP of around 3 mmHg. Pulmonic Valve: The pulmonic valve leaflets are thin and pliable; valve motion is normal. There is mild pulmonic regurgitation. Great Vessels: The aortic root is mildly dilated. The ascending aorta is moderately enlarged. The aortic arch is normal in size. The IVC is of normal diameter and collapses greater than 50% with a sniff. This suggests a low right atrial pressure of 3 mm Hg. Pericardium/ Pleura There is no pericardial effusion. There is an anterior echo-free space consistent with a fat pad. There is no pleural effusion. MMode/2D Measurements & Calculations LVIDd: 4.3 cm LVOT diam: 2.5 cm LVIDs: 2.5 cm Ao root diam: 4.3 cm FS: 41.9 % asc Aorta Diam: 4.4 cm IVSd: 0.90 cm Ao Arch Diam (Prox Trans): 2.6 cm LVPWd: 1.0 cm LV sahu. diameter/BSA (cm/m^2): 2.0 LV sys. diameter/BSA (cm/m^2): 1.2 LA A2 area: 12.0 cm2 RA long axis: 5.2 cm LA A4 area: 11.8 cm2 LA length (vol): 4.6 cm LA vol: 26.3 ml LA vol index: 12.2 ml/m2 LVLs ap4: 6.6 cm LVLd ap2: 8.6 cm LVLs ap2: 6.6 cm TAPSE_phl: 3.1 cm Doppler Measurements & Calculations Ao V2 max: 141.0 cm/sec LVOT Max Juarez: 122.0 cm/sec Ao V2 mean: 104.0 cm/sec LV V1 max P.0 mmHg Ao max P.0 mmHg LV V1 VTI: 22.9 cm Ao mean P.0 mmHg GALILEO(I,D): 3.8 cm2 Ao V2 VTI: 29.2 cm GALILEO(V,D): 4.2 cm2 sev ratio: 0.78 GALILEO indexed to BSA (cm^2/m^2): 1.8 MV E max juarez: 65.6 cm/sec PA V2 max: 109.0 cm/sec MV A max juarez: 69.5 cm/sec PA V2 mean: 73.4 cm/sec MV E/A: 0.94 PA mean P.0 mmHg Med Peak E' Juarez: 7.2 cm/sec PA pr(Accel): 21.9 mmHg E/E' med: 9.2 Lat Peak E' Juarez: 10.1 cm/sec E/E' lat: 6.5 E/e' average: 7.8 MV dec time: 0.28 sec SV(LVOT): 112.4 ml AV VR_phl: 0.87 GALILEO(VTI)/BSA_phl: 1.8 MV P1/2t-pr_phl: 82.0 msec Reading Physician:06:26 PM
== END ==
PROVIDERS: PCP Student in an Organized Health Care Education/Training Program; Referring Provider Student in an Organized Health Care Education/Training Program; Visit Provider Student in an Organized Health Care Education/Training Program
DX: I71.2 Thoracic aortic aneurysm, without rupture (principal); I34.0 Nonrheumatic mitral (valve) insufficiency; I37.1 Nonrheumatic pulmonary valve insufficiency
CPT/HCPCS: 93306

== ENCOUNTER → 2021-12-30 11:46 | Outpatient (CLI) | payer OTHER, SELFPAY ==
[2018-07-07 13:28] VITALS: BMI 25.0
[2021-12-30 13:32] LABS: COVID19 -Nasal RAPID Negative (Negative)
== END ==
PROVIDERS: PCP Student in an Organized Health Care Education/Training Program; Visit Provider Surgery
DX: Z20.822 Contact with and (suspected) exposure to COVID-19 (principal); Z01.812 Encounter for preprocedural laboratory examination
CPT/HCPCS: 87635; C9803

== ENCOUNTER 2021-12-31 08:41 | Day surgery (SDC) | payer OTHER, SELFPAY ==
[2018-07-07 13:28] VITALS: BMI 25.0
[2021-12-31 09:09] VITALS: BP 155/82; PULSE 103; RESP 16; TEMP 36.4; O2SAT 95; BMI 23.7
[2021-12-31] MEDS: LACTATED RINGERS 1,000 ML 200 ML IV (09:16)
--- NOTE | 2021-12-31 10:03 | P.HP_ITS ---
History of Present Illness History of Present Illness Date Patient Seen: 12/31/21 Time Patient Seen: 10:03 Chief complaint: Colonoscopy Narrative: The patient presents for colorectal screening. Colonoscopy 10 years ago normal. No personal or family history of colon cancer. On further history denies any recent gastrointestinal symptoms. No nausea, vomiting, abdominal pain, loss of appetite, unexplained weight loss, change in bowel habits, diarrhea, constipati on, melena, hematochezia, or bright red blood per rectum. Patient History Medical History Acne Benign prostatic hyperplasia (~1997) Eczema Elevated PSA (~2002) Herpes simplex Measles Mumps Osteoarthritis (~2013) Prostate cancer (~2010) Surgical History Anesthesia Finger laceration (~1957) History of tonsillectomy (~1952) Status post colonoscopy (~06/2009) Status post LASIK surgery (~05/1999) Status post radical cystoprostatectomy (~06/2011) Family & Social History Family History Father Osteoporosis Mother Cancer Social History: household members spouse Tobacco & Substance use: Smoking Status Former smoker alcohol intake former alcohol intake frequency other Substance Use Type does not use Meds Home Medications and Allergies Home Medications Medication Instructions Recorded Confirmed Type flaxseed oil 1,000 mg capsule 1 cap PO QPM ##0 02/11/11 12/31/21 History multivitamin 1 tab PO QPM ##0 02/11/11 12/31/21 History ascorbic acid (vitamin C) 1,000 mg 1 tab PO QPM ##0 04/23/11 12/31/21 History tablet biotin 300 mcg tablet 1 tab PO QPM ##0 02/27/16 12/31/21 History acyclovir 400 mg tablet 400 mg PO Q8H as directed #30 tabs 08/15/21 12/31/21 Rx Allergies Allergy/AdvReac Type Severity Reaction Status Date / Time No Known Drug Allergies Allergy Verified 12/31/21 08:59 Exam Vital Signs (past 8 hours): - 12/31/21 09:09 Temperature 97.5 F L Pulse Rate 103 H Respiratory Rate 16 Blood Pressure 155/82 H Pulse Oximetry 95 Oxygen Delivery Method Room Air Oxygen Delivery Method Room Air Narrative Exam Narrative: General adult male alert oriented no acute distress Abdomen soft nontender nondistended Assessment & Plan Assessment & Plan narrative: The patient requires colorectal screening and colonoscopy is recommended. Technical details were discussed. Risks, benefits, alternatives explained. Risks including but not limited to myocardial infarction, aspiration, bleeding, pain, missed lesion, incomplete examination, need for further radiographic studies, colonic perforation, and need for major abdominal surgery were discussed. All questions were answered to their satisfaction, and they are in agreement with this plan. Time Spent With Patient Critical Care time: I spent a total of [] minutes of critical care time on this patient's care today; this time is exclusive of procedural time.
--- NOTE | 2021-12-31 10:05 | PM.OP.COLON ---
Operative Date/Time/Diagnoses Date of procedure: 12/31/21 Time of procedure: 10:05 Pre-op diagnosis: Screening colonoscopy Post-op diagnosis: same Procedure & Clinicians Study performed: Colonoscopy Same procedure as scheduled: Yes Indications: Screening Surgeon: Suraj Santos Procedure Notes Procedure in detail: The history and physical was performed/updated and the patient is ASA class is 2. The procedure was discussed in detail with the patient. Potential risks complications including infection, bleeding, missed diagnosis, perforation, need for surgery, and were explained. Their questions were answered and informed consent was obtained. Patient was brought to the procedure room and placed standard monitoring equipment. The patient's vital signs were monitored continuously throughout the entire procedure. Prior to starting time-out was performed. The patient was placed in the left lateral recumbent position. Procedural sedation was administered by anesthesia. Examination began with a thorough inspection of the perianal area there was no evidence of fissures, fistulae, external hemorrhoids or cutaneous malignancy. The colonoscopy scope was then placed into the anal canal and was advanced to the cecum, which was identified by the ileocecal valve, the appendiceal orifice and the confluence of the taenia. The scope was then slowly withdrawn examining colon thoroughly in all directions, irrigating it of any residual stool. FINDINGS 1. Normal healthy colon. 2. No masses or polyps The patient tolerated the procedure well. They will be discharged once criteria are met. The prep was of good/excellent quality. The withdrawl time was 7 minutes. Specimen(s): none sent Complications: none Impression: Normal colonoscopy Post-procedure Recommendations: High fiber diet Plan for aftercare: No need for further colonoscopy Disposition: same day surgery
[2021-12-31 10:38] VITALS: BP 121/80; PULSE 72; RESP 14; TEMP 36.4; O2SAT 95
[2021-12-31 10:43] VITALS: BP 128/75; PULSE 82; RESP 14; O2SAT 95
[2021-12-31 10:48] VITALS: BP 140/85; PULSE 82; RESP 14; O2SAT 95
[2021-12-31 10:53] VITALS: BP 133/89; PULSE 81; RESP 16; O2SAT 97
== END 2021-12-31 11:18 | disposition home or self-care (01) ==
PROVIDERS: PCP Student in an Organized Health Care Education/Training Program; Referring Provider Surgery; Visit Provider Surgery
PROC: 0DJD8ZZ Inspection of Lower Intestinal Tract, Via Natural or Artificial Opening Endoscopic (ICD-10-PCS; CPT 45378; principal; 2021-12-31 09:45)
DX: Z12.11 Encounter for screening for malignant neoplasm of colon (principal)
CPT/HCPCS: G0121; J2704; J3010

== ENCOUNTER → 2022-01-13 13:43 | Outpatient (CLI) | payer OTHER, SELFPAY ==
[2018-07-07 13:28] VITALS: BMI 25.0
--- NOTE | 2022-01-13 13:46 | DI.ECHO.S_ITS ---
Interpretation Summary The aortic root is moderately dilated, 4.5 cm. The ascending aorta is moderate-severely enlarged, 4.9 cm Compared to prior measurements, the ascending aorta in 2018 was measured at 4.8 cm, and 2020 at 4.4 cm.. Procedure: A two-dimensional transthoracic echocardiogram with color flow and Doppler was performed in limited views only to assess Thoracic aortic aneurysm.. Comparison is made with the echocardiogram of 01/21/2021. The study quality was technically adequate. The patient was in sinus rhythm with heart rates between 70-75 bpm during the exam. Left Ventricle: The left ventricle is normal in size and wall thickness. The ejection fraction is estimated to be 60-65%. Right Ventricle: The right ventricle is normal in size and function. Mitral Valve: The mitral valve is normal. Aortic Valve: The aortic valve is trileaflet. The aortic valve opens well. There is trace aortic regurgitation. Tricuspid Valve: The tricuspid valve is normal. Great Vessels: The aortic root is moderately dilated. The ascending aorta is moderate-severely enlarged. Pericardium/ Pleura There is no pericardial effusion. There is no pleural effusion. MMode/2D Measurements & Calculations LVIDd: 5.0 cm LVOT diam: 2.5 cm LVIDs: 3.0 cm Ao root diam: 4.5 cm FS: 39.4 % asc Aorta Diam: 4.9 cm IVSd: 0.82 cm Ao Arch Diam (Prox Trans): 3.4 cm LVPWd: 0.82 cm LV sahu. diameter/BSA (cm/m^2): 2.4 LV sys. diameter/BSA (cm/m^2): 1.4 Reading Physician:04:48 PM
== END ==
PROVIDERS: PCP Student in an Organized Health Care Education/Training Program; Referring Provider Student in an Organized Health Care Education/Training Program; Visit Provider Student in an Organized Health Care Education/Training Program
DX: I71.20 Thoracic aortic aneurysm, without rupture, unspecified (principal); I77.89 Other specified disorders of arteries and arterioles
CPT/HCPCS: 93307

== ENCOUNTER → 2022-02-05 09:07 | Outpatient (CLI) | payer OTHER, SELFPAY ==
[2018-07-07 13:28] VITALS: BMI 25.0
--- NOTE | 2022-02-05 09:08 | DI.US.S_ITS ---
PROCEDURE: US CAROTID DOPPLER BI INDICATIONS: ASCENDING AORTIC ANEURYSM TECHNIQUE: Color and pulse Doppler interrogation was performed of both carotid systems, with image documentation and velocity measurements. COMPARISON: None. FINDINGS: Stenosis calculations are based on SRU (Society of Radiologists in Ultras[employer]) criteria. The flow velocities and the arterial waveforms are normal within both carotid arterial systems. The estimated degree of internal carotid artery stenosis is less than 50%. Antegrade flow is confirmed within both vertebral arteries. IMPRESSION: No hemodynamically significant stenosis is seen. Dictated by: Ed Suazo M.D. on 02/05/2022 at 8:53 Approved by: Ed Suazo M.D. on 02/05/2022 at 8:54
== END ==
PROVIDERS: PCP Student in an Organized Health Care Education/Training Program; Referring Provider Student in an Organized Health Care Education/Training Program; Visit Provider Student in an Organized Health Care Education/Training Program
DX: I71.20 Thoracic aortic aneurysm, without rupture, unspecified (principal)
CPT/HCPCS: 93880

== ENCOUNTER → 2022-02-18 14:40 | Outpatient (CLI) | payer OTHER, SELFPAY ==
[2018-07-07 13:28] VITALS: BMI 25.0
--- NOTE | 2022-02-18 14:41 | DI.US.S_ITS ---
PROCEDURE: US RETRO PERITONEAL LIMITED INDICATIONS: KNOWN THORACIC ANEURYSM TECHNIQUE: Real time scanning was performed of the aorta and iliac arteries, with image documentation. COMPARISON: None. FINDINGS: Aorta: Proximal aortic diameter measures 1.9 cm. Mid-aorta measures 1.7 cm. Distal aortic diameter is 1.4 cm. Iliac arteries: Right common iliac artery measures 0.9 cm. Left common iliac artery measures 1.0 cm. IMPRESSION: No evidence of aneurysm. Dictated by: Anitha Rodney M.D. on 02/18/2022 at 16:10 Transcribed by: MAYLIN on 02/18/2022 at 16:11 Approved by: Anitha Rodney M.D. on 02/18/2022 at 16:56
== END ==
PROVIDERS: PCP Student in an Organized Health Care Education/Training Program; Referring Provider Student in an Organized Health Care Education/Training Program; Visit Provider Student in an Organized Health Care Education/Training Program
DX: Z13.6 Encounter for screening for cardiovascular disorders (principal); I71.20 Thoracic aortic aneurysm, without rupture, unspecified; Z87.891 Personal history of nicotine dependence
CPT/HCPCS: 76775

== ENCOUNTER → 2022-07-17 12:26 | Outpatient (CLI) | payer OTHER, SELFPAY ==
[2018-07-07 13:28] VITALS: BMI 25.0
--- NOTE | 2022-07-17 12:29 | DI.ECHO.S_ITS ---
[facility] +---------+ [facility] +---------+ : : [address] : [place] : : : : [id number] : : : : Phone: [phone]---------+ Echocardiogram Report + + :Name: YOVANNY LYON Study Date: 07/17/2022 Height: 74 in : :[facility] ReadingLocation: Weight: 196 lb : : Gender: Male BSA: 2.2 m2 : :: 1945 Age: 77 yrs BP: 124/69 mmHg: :Reason For Study: AORTIC ANEURYSM : :Ordering Physician: MARIE, : :NATY Performed By: Trinidad Gurrola : :Referring: VESTA PATINO : + + Interpretation Summary 1) Normal left ventricular thickness, size, wall motion, and systolic function (EF 60-65%). 2) Normal right ventricular size and function. 3) No significant valvular abnormalities. 4) The ascending aorta is moderate-severely enlarged at 4.9cm. 5) Compared to the Echo done 01/13/2022, no significant change. Procedure: A two-dimensional transthoracic echocardiogram with color flow and Doppler was performed. The study quality was technically adequate. Comparison is made with the echocardiogram of 01/13/2022. The patient was in sinus rhythm with heart rates between 65-72 bpm during the exam. Left Ventricle: The left ventricle is normal in size and wall thickness. The ejection fraction is estimated to be 60-65%. Left ventricular systolic function appears normal without focal wall motion abnormalities. Diastolic parameters suggest a relaxation abnormality of the left ventricle, consistent with probable normal filling pressures. Right Ventricle: The right ventricle is normal in size and function. Atria: The left atrial size is normal. Right atrial size is normal. There is no Doppler evidence for an interatrial shunt. Mitral Valve: The mitral valve is normal in structure and function. There is mild mitral regurgitation. Aortic Valve: The aortic valve is trileaflet. The aortic valve opens well. There is no aortic valve stenosis. There is trace aortic regurgitation. Tricuspid Valve: The tricuspid valve is normal in structure and function. There is trace tricuspid regurgitation. Pulmonic Valve: The pulmonic valve leaflets are thin and pliable; valve motion is normal. There is trace pulmonic regurgitation. Great Vessels: The aortic root is moderately dilated. The ascending aorta is moderate-severely enlarged. The IVC is of normal diameter and collapses greater than 50% with a sniff. This suggests a low right atrial pressure of 3 mm Hg. Pericardium/ Pleura There is no pericardial effusion. There is no pleural effusion. MMode/2D Measurements & Calculations LVIDd: 4.7 cm LVOT diam: 2.5 cm LVIDs: 2.9 cm Ao root diam: 4.5 cm FS: 38.7 % asc Aorta Diam: 4.9 cm IVSd: 0.80 cm Ao Arch Diam (Prox Trans): 3.3 cm LVPWd: 0.88 cm LV sahu. diameter/BSA (cm/m^2): 2.2 LV sys. diameter/BSA (cm/m^2): 1.3 LA A2 area: 14.5 cm2 RA long axis: 4.6 cm LA A4 area: 12.7 cm2 RA area: 13.8 cm2 LA length (vol): 4.0 cm RA vol: 35.3 ml LA vol: 38.7 ml RA : 16.4 ml/m2 LA vol index: 18.0 ml/m2 IVC diam: 0.93 cm RVD1 (basal): 3.2 cm RVD2 (mid): 2.8 cm TAPSE: 2.4 cm Doppler Measurements & Calculations Ao V2 max: 136.5 cm/sec LVOT Max Juarez: 122.4 cm/sec Ao V2 mean: 100.9 cm/sec LV V1 max P.0 mmHg Ao max P.4 mmHg LV V1 VTI: 22.4 cm Ao mean P.4 mmHg GALILEO(I,D): 3.9 cm2 Ao V2 VTI: 27.1 cm GALILEO(V,D): 4.2 cm2 sev ratio: 0.83 GALILEO indexed to BSA (cm^2/m^2): 1.8 MV E max juarez: 66.5 cm/sec PA V2 max: 141.2 cm/sec MV A max juarez: 67.3 cm/sec PA V2 mean: 96.2 cm/sec MV E/A: 0.99 PA mean P.1 mmHg Med Peak E' Juarez: 7.7 cm/sec PA pr(Accel): 32.8 mmHg E/E' med: 8.7 Lat Peak E' Juarez: 9.5 cm/sec E/E' lat: 7.0 E/e' average: 7.8 MV dec time: 0.30 sec SV(LVOT): 105.8 ml Reading Physician:03:43 PM
== END ==
PROVIDERS: PCP Family Medicine; Referring Provider Student in an Organized Health Care Education/Training Program; Visit Provider Student in an Organized Health Care Education/Training Program
DX: I34.0 Nonrheumatic mitral (valve) insufficiency; I71.20 Thoracic aortic aneurysm, without rupture, unspecified; I77.89 Other specified disorders of arteries and arterioles
CPT/HCPCS: 93306

== ENCOUNTER → 2022-10-15 07:08 | Outpatient (CLI) | payer OTHER, SELFPAY ==
[2018-07-07 13:28] VITALS: BMI 25.0
[2022-10-15 09:39] LABS: Hemoglobin A1C% w Est Avg Glu 5.2 % (4.0-6.0)
[2022-10-15 09:51] LABS: Alanine Aminotransferase 25 IU/L (<50); Albumin 4.3 g/dL (3.5-5.0); Albumin Globulin Ratio 1.6 (1.0-2.8); Alkaline Phosphatase 83 U/L (38-126); Aspartate Aminotransferase 25 IU/L (17-59); BUN Creatinine Ratio 22.4 (6-22); Bilirubin Total 0.5 mg/dL (0.2-1.3); Blood Urea Nitrogen 19 mg/dL (9-20); Calcium 9.5 mg/dL (8.4-10.2); Carbon Dioxide 26 mmol/L (22-32); Chloride 105 mmol/L (98-107); Cholesterol 190 mg/dL (140-199); Estimated Glomerular Filt Rate > 60 mL/min (>60); Globulin 2.7 g/dL (1.7-4.1); Glucose 102 mg/dL (80-110); HDL Cholesterol 37 mg/dL (40-60); HEMOLYSIS < 15 (0-50); LDL Cholesterol Calculated 139 mg/dL (<100); Potassium 4.3 mmol/L (3.4-5.1); Sodium 141 mmol/L (137-145); Triglycerides 70 mg/dL (35-150)
[2022-10-15 09:55] LABS: High Sensitivity CRP - Cardiac 1.4 mg/L (1.0-3.0); Vitamin D 25 Hydroxy (D3) 45.4 ng/mL (30.0-100.0)
== END ==
PROVIDERS: PCP Family Medicine; Referring Provider Family Medicine; Visit Provider Family Medicine
DX: R73.9 Hyperglycemia, unspecified (principal); E78.5 Hyperlipidemia, unspecified; E55.9 Vitamin D deficiency, unspecified; I71.21 Aneurysm of the ascending aorta, without rupture
CPT/HCPCS: 36415; 80053; 80061; 82306; 83036; 86140

== ENCOUNTER → 2023-05-08 14:42 | Outpatient (CLI) | payer OTHER, SELFPAY ==
[2018-07-07 13:28] VITALS: BMI 25.0
[2023-05-08 16:38] LABS: Alanine Aminotransferase 57 IU/L (<50); Albumin 4.1 g/dL (3.5-5.0); Albumin Globulin Ratio 1.4 (1.0-2.8); Alkaline Phosphatase 82 U/L (38-126); Aspartate Aminotransferase 41 IU/L (17-59); Bilirubin Total 0.6 mg/dL (0.2-1.3); Bilirubin Unconjugated 0.3 mg/dL (0.0-1.1); Cholesterol 124 mg/dL (140-199); HDL Cholesterol 40 mg/dL (40-60); HEMOLYSIS < 15 (0-50); LDL Cholesterol Calculated 61 mg/dL (<100); Total Protein 7.1 g/dL (6.3-8.2); Triglycerides 113 mg/dL (35-150)
== END ==
PROVIDERS: PCP Family Medicine; Referring Provider Internal Medicine Cardiovascular Disease; Visit Provider Internal Medicine Cardiovascular Disease
DX: I71.21 Aneurysm of the ascending aorta, without rupture (principal); E78.00 Pure hypercholesterolemia, unspecified
CPT/HCPCS: 36415; 80061; 80076

== ENCOUNTER → 2023-06-10 15:27 | Outpatient (CLI) | payer OTHER, SELFPAY ==
[2018-07-07 13:28] VITALS: BMI 25.0
== END ==
PROVIDERS: PCP Family Medicine; Referring Provider Family Medicine; Visit Provider Family Medicine
DX: R05.3 Chronic cough (principal); F17.210 Nicotine dependence, cigarettes, uncomplicated; J98.8 Other specified respiratory disorders
CPT/HCPCS: 94060; 94726; 94729

== ENCOUNTER → 2023-09-08 07:11 | Outpatient (CLI) | payer OTHER, SELFPAY ==
[2018-07-07 13:28] VITALS: BMI 25.0
[2023-09-08 09:26] LABS: Cholesterol 163 mg/dL (140-199); HDL Cholesterol 48 mg/dL (40-60); LDL Cholesterol Calculated 99 mg/dL (<100); Triglycerides 80 mg/dL (35-150)
[2023-09-08 09:30] LABS: High Sensitivity CRP - Cardiac 0.5 mg/L (1.0-3.0)
== END ==
PROVIDERS: PCP Family Medicine; Referring Provider Family Medicine; Visit Provider Family Medicine
DX: E78.5 Hyperlipidemia, unspecified (principal)
CPT/HCPCS: 36415; 80061; 86140

== ENCOUNTER → 2024-09-19 07:02 | Outpatient (CLI) | payer OTHER, SELFPAY ==
[2018-07-07 13:28] VITALS: BMI 25.0
[2024-09-19 07:41] LABS: Alanine Aminotransferase 26 IU/L (<50); Albumin 4.1 g/dL (3.5-5.0); Albumin Globulin Ratio 1.6 (1.0-2.8); Alkaline Phosphatase 81 U/L (38-126); Blood Urea Nitrogen 14 mg/dL (9-20); Calcium 9.4 mg/dL (8.4-10.2); Carbon Dioxide 26 mmol/L (22-32); Chloride 104 mmol/L (98-107); Cholesterol 145 mg/dL (140-199); Estimated Glomerular Filt Rate > 60 mL/min (>60); Globulin 2.6 g/dL (1.7-4.1); Glucose 108 mg/dL (70-99); HDL Cholesterol 45 mg/dL (40-60); HEMOLYSIS < 15 (0-50); Potassium 4.6 mmol/L (3.4-5.1); Sodium 137 mmol/L (137-145); Total Protein 6.7 g/dL (6.3-8.2); Triglycerides 70 mg/dL (35-150)
[2024-09-20 03:40] LABS: CRP, High Sensitivity 0.74 mg/L (0.00-3.00)
== END ==
PROVIDERS: PCP Family Medicine; Referring Provider Family Medicine; Visit Provider Family Medicine
DX: E78.00 Pure hypercholesterolemia, unspecified (principal)
CPT/HCPCS: 36415; 80053; 80061; 86140

== ENCOUNTER → 2024-09-20 11:54 | Outpatient (CLI) | payer OTHER, SELFPAY ==
[2018-07-07 13:28] VITALS: BMI 25.0
[2024-09-20 15:00] LABS: Hemoglobin A1C% w Est Avg Glu 5.6 % (4.0-6.0)
== END ==
PROVIDERS: PCP Family Medicine; Referring Provider Family Medicine; Visit Provider Family Medicine
DX: R73.9 Hyperglycemia, unspecified (principal); E78.00 Pure hypercholesterolemia, unspecified
CPT/HCPCS: 36415; 83036

== ENCOUNTER → 2024-12-20 11:33 | Outpatient (CLI) | payer OTHER, SELFPAY ==
[2018-07-07 13:28] VITALS: BMI 25.0
--- NOTE | 2024-12-20 11:34 | DI.RAD.S_ITS ---
PROCEDURE: XR DEXA AXIAL SKELETON
== END ==
LOC: RAD 11:33
PROVIDERS: PCP Family Medicine; Referring Provider Family Medicine; Visit Provider Family Medicine
DX: M81.0 Age-related osteoporosis without current pathological fracture (principal)
CPT/HCPCS: 77080